=== PATIENT | female | born 1955 | race Caucasian/White ===

== ENCOUNTER 2019-11-12 07:59 | Day surgery (SDC) | payer OTHER ==
[2019-11-07 15:14] VITALS: BMI 19.7
[2019-11-12 08:35] VITALS: TEMP 98.1
[2019-11-12] MEDS ORDERED: LIDOCAINE HCL/PF 2% SDV 5ML VIAL ONE (08:43)
[2019-11-12] MEDS ORDERED: PROPOFOL 20 ML ONE ×3 (08:43)
[2019-11-12 10:25] VITALS: BP 105/65; PULSE 66
--- NOTE | 2019-11-13 17:04 | PATH ---
Surgical Pathology Report Patient Name: RODRIGO VILLAGOMEZ [facility]. Rec. #: [id number] /Age/Gender: 1955 (Age: 64) / F Account: [id number] Location: [facility] Taken: 11/12/2019 Received: 11/12/2019 Reported: 11/13/2019 Physicians: Guille Conte M.D. Specimen(s) Received A: CECAL POLYP B: TRANSVERSE COLON POLYP Clinical History Weight loss, abdominal pain Postoperative diagnosis: Diverticulosis Final Diagnosis A. CECAL POLYP, POLYPECTOMY: SESSILE SERRATED POLYP. B. TRANSVERSE COLON POLYP, POLYPECTOMY: HYPERPLASTIC POLYP. Electronically Signed Ivette Pena M.D. Gross Description A. Received in formalin, labeled "cecal polyp" is a vaca, polypoid portion of soft tissue measuring 0.6 cm. in greatest dimension. The specimen is submitted in toto in one cassette. B. Received in formalin, labeled "transverse colon polyp" is a vaca, irregular portion of soft tissue measuring 0.3 cm. in greatest dimension. The specimen is submitted in toto in one cassette. /11/12/2019 saudi/11/12/2019
== END 2019-11-12 10:15 | disposition home or self-care (01) ==
LOC: FASU-ENDO 07:59
PROVIDERS: ATTEND Internal Medicine Gastroenterology
PROC: 0DBL8ZX Excision of Transverse Colon, Via Natural or Artificial Opening Endoscopic, Diagnostic (ICD-10-PCS; 2019-11-12)
PROC: 0DBH8ZX Excision of Cecum, Via Natural or Artificial Opening Endoscopic, Diagnostic (ICD-10-PCS; principal; 2019-11-12 09:00)
DX: K57.30 Diverticulosis of large intestine without perforation or abscess without bleeding (principal); D12.0 Benign neoplasm of cecum; D12.3 Benign neoplasm of transverse colon; K64.4 Residual hemorrhoidal skin tags; R63.4 Abnormal weight loss; R10.13 Epigastric pain
CPT/HCPCS: 88305-TC